=== PATIENT | female | born 1995 | race Caucasian/White ===

== ENCOUNTER 2016-07-08 20:50 | Emergency (ER) | payer OTHER ==
[~2016-07-08] VITALS: Ht 170.2 cm; Wt 66.4 kg
[2016-07-08] MEDS ORDERED: HYDROCODONE/ACETAMINOPHEN 5/325MG TABLET PO ONE (22:45)
[2016-07-08 22:59] VITALS: BP 126/74
== END 2016-07-08 22:57 | disposition home or self-care (01) ==
LOC: ER 22:56
DX: R51 Headache (principal); Z90.49 Acquired absence of other specified parts of digestive tract; Y04.0XXA Assault by unarmed brawl or fight, initial encounter
CPT/HCPCS: 99282

== ENCOUNTER 2016-11-02 19:53 | Emergency (ER) | payer OTHER | END 2016-11-02 21:11 | disposition left against medical advice (07) | LOC: ER 19:53 | DX: Z53.21 Procedure and treatment not carried out due to patient leaving prior to being seen by health care provider (principal) ==